=== PATIENT | female | born 1990 | race African-American/Black ===

== ENCOUNTER 2021-03-19 11:00 | Observation (INO) | payer MEDICAID ==
[~2021-03-19 11:00] MED LIST: PREN-96 PO
== END 2021-03-19 13:40 | disposition home or self-care (01) ==
LOC: LDRP 11:00
PROVIDERS: ADMIT Specialist; ATTEND Specialist
DX: O26.892 Other specified pregnancy related conditions, second trimester (principal); R10.9 Unspecified abdominal pain; Z3A.22 22 weeks gestation of pregnancy; V49.40XA Driver injured in collision with unspecified motor vehicles in traffic accident, initial encounter; Y93.89 Activity, other specified; Y92.410 Unspecified street and highway as the place of occurrence of the external cause
CPT/HCPCS: 59025; 76815; 81002; G0378

== ENCOUNTER 2023-04-09 10:21 | Emergency (ER) | payer MEDICAID ==
[~2023-04-09] VITALS: Ht 170.2 cm; Wt 142.0 kg
[2023-04-09 11:25] VITALS: BP 117/69
[2023-04-09 11:40] LABS: Urine Bacteria NONE SEEN /hpf (None Seen); Urine Blood 3+ /uL (Negative); Urine Mucus FEW (None Seen); Urine Specific Gravity 1.029 (1.001-1.035); Urine WBC 6 /hpf (0 - 5)
[2023-04-09] MEDS ORDERED: NITR-52 PO (13:30)
[2023-04-09] MEDS ORDERED: ONDA-144 PO (13:30)
== END 2023-04-09 13:47 | disposition home or self-care (01) ==
LOC: ER 10:21
DX: R51.9 Headache, unspecified (principal); N39.0 Urinary tract infection, site not specified; R11.2 Nausea with vomiting, unspecified; Z32.02 Encounter for pregnancy test, result negative
CPT/HCPCS: 81001; 81025; 87086

== ENCOUNTER 2025-02-20 15:45 | Observation (INO) | payer MEDICAID ==
[~2025-02-20 15:45] MED LIST changes: +CEPH250C PO; +NITR-52 PO; +ONDA-144 PO
--- NOTE | 2025-02-20 16:44 | DVH ---
Procedure: US BIOPHYSICAL PROFILE 02/20/2025 04:01 PM Indication: PIH Comparison: None Technique: Sonogram of gravid uterus utilizing grayscale and color techniques. FINDINGS: Single living intrauterine gestation. Presentation: Breech Placenta: Anterior, no evidence of placenta previa or abruption heart rate: 140 bpm MADHAVI: 14.2 cm, DVP: 3 cm Maternal cervix: Not visualized Biophysical Profile: breathing score: 2 movement score: 2 tone: 2 Quantitative MADHAVI score: 2 Total score: 8/8 IMPRESSION: 1. Single living as above. 2. Biophysical profile score: 8/8.
[2025-02-20 17:11] LABS: Basophils # (auto) 0 10 ^3/uL (0-0.2); Eosinophils # (auto) 0 10 ^3/uL (0-0.8); Hemoglobin 9.9 g/dL (12.2-16.2); Lymphocytes % (auto) 20.6 % (10.0-50.0); White Blood Cell 9.7 10^3/uL (4.4-10.8)
[2025-02-20 17:13] LABS: Basophils % (auto) 0.3 % (0.0-2.0); Eosinophils % (auto) 0.4 % (0.0-7.0); Mean Corpuscular Hemoglobin 22.9 pg (28.0-32.0); Mean Corpuscular Hgb Conc. 30.9 g/dL (32.0-36.0); Monocytes # (auto) 0.9 10 ^3/uL (0-1.3); Monocytes % (auto) 9.1 % (0.0-12.0); Neutrophils # (auto) 6.7 10 ^3/uL (1.6-8.6); Neutrophils % (auto) 69.6 % (37.0-80.0); Platelet Count (auto) 176 10^3/uL (140-450); Red Blood Cells 4.33 10^6/uL (4.0-5.20)
[2025-02-20 17:16] LABS: Red Cell Distribution Width 22.2 % (11.8-14.3)
[2025-02-20 17:27] LABS: Creatinine, Urine 27.09 mg/dL (30.0-125.0); Urine Protein/Creatinine Ratio 0.22
[2025-02-20 17:27] LABS: INR 0.93 (0.9-1.15); Partial Thromboplastin Time 25.6 SEC (24.5-34.5); Prothrombin Time 9.9 sec (9.3-11.8)
[2025-02-20 17:31] LABS: Alanine Aminotransferase 10 U/L (7-40); Albumin 3.8 g/dL (3.2-4.8); Alkaline Phosphatase 90 U/L (46-116); Anion Gap 7 (5-15); Bilirubin, Total 0.3 mg/dL (0.2-1.0); Calcium 8.9 mg/dL (8.7-10.4); Carbon Dioxide 22 mmol/L (20-31); Glucose 76 mg/dL (74-106); Sodium 137 mmol/L (136-145); Total Protein 6.6 g/dL (5.7-8.2)
[2025-02-20 17:32] LABS: Urine Bacteria MOD /hpf (None Seen); Urine Blood Negative /uL (Negative); Urine Clarity Turbid (Clear); Urine Color Colorless (Yellow); Urine Hyaline Cast FEW /lpf (0 - 2); Urine Protein, UAD Negative (Negative); Urine Specific Gravity 1.005 (1.001-1.035); Urine Squamous Epithelial Cell FEW /hpf (<5); Urine Urobilinogen Normal (Negative); Urine WBC 8 /HPF (0-5); Urine pH 6.5 (5.0-9.0)
[2025-02-20 17:33] LABS: Amphetamine Screen, Urine Neg (NEGATIVE); Barbiturate Scree,Urine Neg (NEGATIVE); Benzodiazephine Screen, Urine Neg (NEGATIVE); Cannabinoid Screen, Urine Neg (NEGATIVE); Cocaine Screen, Urine Neg (NEGATIVE); Opiate Scree,Urine Neg (NEGATIVE); Phencyclidine Screen, Urine Neg (NEGATIVE); Protein, Urine < 6.0 mg/dL (1-14)
[2025-02-20 17:35] LABS: Aspartate Aminotransferase 13 U/L (13-40); Blood Urea Nitrogen 5 mg/dL (9-23); Chloride 108 mmol/L (98-107); Potassium 3.3 mmol/L (3.5-5.1); Uric Acid 2.5 mg/dL (3.1-7.8)
--- NOTE | 2025-02-21 14:38 | DVHDS2 ---
Physician Discharge Progress N Final Diagnosis: pih check 34 wks Operations or Procedures: Operations or Procedures nst,sono Condition on Discharge: Good Disposition: Home Discharge Instructions: Diet: Regular Activity: No Restrictions, As Tolerated Medications: na Follow Up Care: Specialist: 3d Discharge Statement: "Patient was advised to return to the ER or call 911 if any headaches, dizziness, shortness of breath, chest pain, abdominal pain, bleeding, fevers, or worsening of medical condition. Patient was counseled about treatment plan, medications, possible side effects, patientverbalized understanding. All questions were answered to the best of my ability. This discharge took greater then 30 minutes in planning, reviewing documentation, counseling the patient, and discussing with other team members." Visit Coding OBGYN Date of Service: Feb 20, 2025 Billing Provider: NERI BOB DO IMAGER Common Visit Codes: 56464-[id number] INP/OBS CARE (HIGH) IMAGER Procedure Codes: 17561-13- NON-STRESS TEST NERI BOB DO Feb 21, 2025 14:38
== END 2025-02-20 17:55 | disposition home or self-care (01) ==
LOC: LDRP 15:45
PROVIDERS: ADMIT Obstetrics & Gynecology; ATTEND Obstetrics & Gynecology
DX: O13.3 Gestational [pregnancy-induced] hypertension without significant proteinuria, third trimester (principal); Z98.890 Other specified postprocedural states; Z79.899 Other long term (current) drug therapy; Z3A.34 34 weeks gestation of pregnancy
CPT/HCPCS: 36415; 76818; 80053; 80307; 81001; 81002; 82570; 84156; 84550; 85025; 85610; 85730; 94760; G0378; 76819

== ENCOUNTER 2025-03-19 09:35 | Observation (INO) | payer MEDICAID ==
--- NOTE | 2025-03-19 12:53 | DVHDS2 ---
Physician Discharge Progress N Final Diagnosis: False labor Previous C/Section Secondary Diagnosis: Encounter for NST Condition on Discharge: Stable Disposition: Home Discharge Instructions: Diet: Regular Activity: No Restrictions, As Tolerated Activity comment: Labor precations Follow Up/Referral: as scheduled Medications: NA Follow Up Care: Discharge Statement: "Patient was advised to return to the ER or call 911 if any headaches, dizziness, shortness of breath, chest pain, abdominal pain, bleeding, fevers, or worsening of medical condition. Patient was counseled about treatment plan, medications, possible side effects, patientverbalized understanding. All questions were answered to the best of my ability. This discharge took greater then 30 minutes in planning, reviewing documentation, counseling the patient, and discussing with other team members." Visit Coding OBGYN Date of Service: Mar 19, 2025 Billing Provider: SHANNA TOMPKINS DO ASE CERTIFIED TECHNICIAN Common Visit Codes: [id number] INP/OBS CARE(MOD) SHANNA TOMPKINS DO Mar 19, 2025 12:53
== END 2025-03-19 11:03 | disposition home or self-care (01) ==
LOC: LDRP 09:35 → UNDOADMOB 10:29 → LDRP 10:29
PROVIDERS: ADMIT Obstetrics & Gynecology; ATTEND Obstetrics & Gynecology
DX: O47.9 False labor, unspecified (principal); Z98.890 Other specified postprocedural states; Z79.899 Other long term (current) drug therapy; Z3A.38 38 weeks gestation of pregnancy
CPT/HCPCS: 59025; 81002; 94760; G0378

== ENCOUNTER 2025-03-21 04:27 | Inpatient (IN) | payer MEDICAID ==
[2025-03-19 10:38] LABS: Basophils # (auto) 0 10 ^3/uL (0-0.2); Basophils % (auto) 0.4 % (0.0-2.0); Eosinophils % (auto) 0.5 % (0.0-7.0); Hemoglobin 11.5 g/dL (12.2-16.2); White Blood Cell 10.1 10^3/uL (4.4-10.8)
[2025-03-19 10:45] LABS: Eosinophils # (auto) 0 10 ^3/uL (0-0.8); Hematocrit 36.2 % (36.0-46.0); Lymphocytes # (auto) 1.9 10 ^3/uL (0.4-5.4); Lymphocytes % (auto) 18.6 % (10.0-50.0); Mean Corpuscular Hemoglobin 23.8 pg (28.0-32.0); Mean Corpuscular Hgb Conc. 31.6 g/dL (32.0-36.0); Mean Corpuscular Volume 75.2 fL (80.0-100.0); Monocytes # (auto) 0.8 10 ^3/uL (0-1.3); Monocytes % (auto) 8.2 % (0.0-12.0); Neutrophils # (auto) 7.3 10 ^3/uL (1.6-8.6); Neutrophils % (auto) 72.3 % (37.0-80.0); Platelet Count (auto) 132 10^3/uL (140-450); Red Blood Cells 4.82 10^6/uL (4.0-5.20); Red Cell Distribution Width 24.9 % (11.8-14.3)
[2025-03-19 10:47] LABS: Urine Bacteria FEW /hpf (None Seen); Urine Blood Negative /uL (Negative); Urine Clarity Clear (Clear); Urine Color Yellow (Yellow); Urine Mucus FEW (None Seen); Urine Protein, UAD TRACE (Negative); Urine Specific Gravity 1.019 (1.001-1.035); Urine Squamous Epithelial Cell FEW /hpf (<5); Urine Urobilinogen 3 mg/dL (Negative); Urine WBC 3 /HPF (0-5); Urine pH 6.5 (5.0-9.0)
[2025-03-19 10:50] LABS: INR 0.92 (0.9-1.15); Partial Thromboplastin Time 25.4 SEC (24.5-34.5); Prothrombin Time 9.8 sec (9.3-11.8)
[2025-03-19 10:58] LABS: Albumin 3.8 g/dL (3.2-4.8); Alkaline Phosphatase 104 U/L (46-116); Anion Gap 8 (5-15); Carbon Dioxide 21 mmol/L (20-31); Glucose 79 mg/dL (74-106); Sodium 138 mmol/L (136-145); Total Protein 6.6 g/dL (5.7-8.2)
[2025-03-19 10:58] LABS: Amphetamine Screen, Urine Neg (NEGATIVE); Barbiturate Scree,Urine Neg (NEGATIVE); Benzodiazephine Screen, Urine Neg (NEGATIVE); Cannabinoid Screen, Urine Neg (NEGATIVE); Cocaine Screen, Urine Neg (NEGATIVE); Opiate Scree,Urine Neg (NEGATIVE); Phencyclidine Screen, Urine Neg (NEGATIVE)
[2025-03-19 10:59] LABS: Bilirubin, Total 0.4 mg/dL (0.2-1.0)
[2025-03-19 11:02] LABS: Alanine Aminotransferase < 9 U/L (7-40); Aspartate Aminotransferase 13 U/L (13-40); Blood Urea Nitrogen 7 mg/dL (9-23); Chloride 109 mmol/L (98-107); Potassium 3.4 mmol/L (3.5-5.1)
--- NOTE | 2025-03-20 09:12 | DVHHP ---
ADMIT DATE: 03/21/2025 CHIEF COMPLAINT: Desires repeat section. HISTORY OF PRESENT ILLNESS: The patient is a 34-year-old 3, para 2 with EDC 03/30, estimated gestational age of 38 and 6/7, admitted for repeat section, presents complaining of contractions. She does not want any tubal ligation. She has been in and out of Labor and Delivery for labor. She reports having some incisional pain. PAST MEDICAL HISTORY: None. PAST SURGICAL HISTORY: . SOCIAL HISTORY: None. FAMILY HISTORY: None. PROJECT ARCHITECT HISTORY: x 2. ALLERGIES: No known drug allergies. REVIEW OF SYSTEMS: Consistent with HPI. PHYSICAL EXAMINATION: VITAL SIGNS: Stable, afebrile. HEENT: Within normal limits. CARDIOVASCULAR: Regular rate and rhythm. LUNGS: Clear to auscultation. BREASTS: Symmetrical. No masses. ABDOMEN: Gravid. Positive heart. PELVIC: 1 cm, soft, 60%. EXTREMITIES: No clubbing, cyanosis, or edema. IMPRESSION: * Intrauterine at 38 and 6/7 in early labor for repeat section. * The patient desires repeat section. * Previous section x 2. PLAN: Repeat section. Informed consent obtained. Risks and complications of surgery including infection, bleeding, hematoma formation, injury to bowel or bladder, surrounding organ, possibility of DVT, pulmonary embolism, and risks of anesthesia were discussed with the patient. Options were reviewed. All questions were answered. The patient fully understands. She wishes to proceed with planned procedure. DO THOR Ryder/TERRENCE TID: [id number] RECEIPT: [id number]
[~2025-03-21] VITALS: Ht 170.2 cm; Wt 63.5 kg
[2025-03-21] VITALS (16 sets, daily range): BP systolic 100–125; BP diastolic 54–79; PULSE 59–105; RESP 15–18; TEMP 97.3–98.5; O2SAT 96–100
[2025-03-21] MEDS: SODIUM CITR/CITRIC ACID ORAL SOLN 30 ML PO ONE (05:00)
[2025-03-21] MEDS ORDERED: MORPHINE SULF PF 5 MG/10 ML VIAL ONE (06:41)
[2025-03-21] MEDS: ceFAZolin 2 GM/D5W50ml 50 ML IV ONE (06:48)
[2025-03-21] MEDS: LACTATED RINGER'S 1,000 ML IV SCH (06:53)
[2025-03-21] MEDS ORDERED: HYDR-4072 PO (06:58)
[2025-03-21] MEDS ORDERED: DOCU-94 PO (06:58)
[2025-03-21] MEDS ORDERED: IBUP-1456 PO (06:58)
[2025-03-21] MEDS ORDERED: GUM (CHEWING) 1 GUM CHEW CHEW ONE (07:00)
[2025-03-21] MEDS ORDERED: ONDANSETRON HCL 4 MG/2 ML VIAL IV PRN ×2 (07:00→08:45)
[2025-03-21] MEDS ORDERED: ceFAZolin 1GM/50ML 50 ML IV SCH (07:00)
[2025-03-21] MEDS ORDERED: ePHEDrine SULFATE 50 MG/ML AMP ONE (07:18)
[2025-03-21] MEDS ORDERED: ONDANSETRON HCL 4 MG/2 ML VIAL ONE (07:19)
[2025-03-21] MEDS ORDERED: PHENYLEPHRINE HCL 10 MG/ML VL ONE (08:07)
[2025-03-21] MEDS ORDERED: DexAMETHasone SOD PHOS 10MG/1ML VIAL INJ IV PRN (08:45)
[2025-03-21] MEDS ORDERED: NALOXONE HCL 0.4 MG/ML VIAL IV PRN (08:45)
[2025-03-21] MEDS ORDERED: HYDROmorphone HCL 2 MG/ML VL/or syr IV PRN ×2 (08:45)
[2025-03-21] MEDS ORDERED: MEPERIDINE HCL (25 MG/ML) 1ML VIAL IV PRN (08:45)
[2025-03-21] MEDS ORDERED: ACETAMINOPHEN IV 1000 MG/100ML (10MG/ML) IV PRN (08:45)
[2025-03-21] MEDS: NALBUPHINE HCL 10 MG/1ml INJECTION SUBCUT ONE (08:45)
[2025-03-21] MEDS ORDERED: LACTATED RINGER'S 1,000 ML IV SCH (09:45)
[2025-03-21] MEDS: ACETAMINOPHEN IV 1000 MG/100ML (10MG/ML) IV PRN (10:08)
[2025-03-21] MEDS: diphenhdrAMINE HCL 50 MG/1 ML VL IV PRN ×2 (10:36→15:02)
--- NOTE | 2025-03-21 14:15 | DVHOP2 ---
Operative Report DATE OF OPERATION:03/21/25 PREOPERATIVE DIAGNOSES: [IUP AT 38+5/7 IN EARLY LABOR,[facility]] POSTOPERATIVE DIAGNOSES: [SAME] OPERATION PERFORMED: Repeat Section FINDINGS: [B] . Apgars of [8] and [8]. Weight [GOOD] crying tone. [CLEAR] amniotic fluid. Placenta and three-vessel were intact. Normal tubes, ovaries, and uterus. Moderate scar tissue. SURGEON: Jeni Avelar D.O. QUALITY ASSURANCE CALIBRATOR: motion picture camera lens technician, [KAYLEE]. ANESTHESIOLOGIST: Derik DUARTE ANESTHESIA: [Duramorph spinal, regional]. COMPLICATIONS: [NONE]. ESTIMATED BLOOD LOSS: [500] mL. BLOOD PRODUCTS USED: [NA]. PROCEDURE IN DETAIL: The patient was taken to the operating room, placed in sitting position, and spinal was placed without difficulty. She was then prepped and draped in a sterile fashion. A low Pfannenstiel incision was made scapel. At this point, it was carried down through the rectus fascia, nicked in the midline, and carried laterally. The rectus muscles were in the midline. Peritoneum was identified and entered with sharp dissection. Vesicouterine peritoneum was taken off the lower uterine segment. A lower uterine transverse incision was made with a scalpel down the chorionic membranes, ruptured with hemostat. Infant was in vertex position. One hand was placed in the lower uterine segment. Head was essentially delivered spontaneously. Nose and mouth were bulb suctioned. Shoulders and torso were delivered without difficulty. Again, pharynx, nose, and mouth were re-suctioned with vigorous crying tone. Cord was cut. The was handed off to the awaiting Respiratory. At this point, umbilical blood sample was taken. Placenta was removed. Uterus was exteriorized, cleared off all clots and debris, irrigated, and closed with a double layer of 0-Vicryl. The vesicouterine peritoneum was incorporated into this closure. We had complete hemostasis. EBL was [500] mL. The instrument, lap, and sponge count was correct x1. The uterus was placed back into the peritoneum. The peritoneal cavity was re-inspected and the lower uterine incision with good hemostasis. We closed the peritoneum with running continuous of 2-0 Vicryl. The Rectus Fascia was closed with 0-PDS, running continuous, looped-0. The skin was closed undermined, irrigated, and close with edenilson. CONDITION: The patient's and the 's condition is stable and but guarded. Visit Coding OBGYN Date of Service: Mar 21, 2025 Billing Provider: JENI AVELAR DO ARTIST AGENT Common Visit Codes: 25572-WUJ/OBS SAME DATE (HIGH) ARTIST AGENT Procedure Codes: [id number] DELIVERY ONLY JENI AVELAR DO Mar 21, 2025 14:15
--- NOTE | 2025-03-21 14:17 | POSTOP ---
Post-Operative Note Post-Operative Note Preop Diagnosis IUP AT 38 +WKS IN Labor ,desires rcs Postop Diagnosis: same Operation performed rcs Specimen baby boy,apgars 8-8 Anesthesia: Regional Anesthesiologist: nuygen Blood Loss(fluid mgmt) 500ml Surgeon Neri Avelar Senior Resident Care Director migel Implant na Complications & Mgmt none Date 03/21/25 Time 14:16 Visit Coding OBGYN Date of Service: Mar 21, 2025 Billing Provider: NERI AVELAR DO MANAGER CONTENT Common Visit Codes: 60303-CRI/OBS SAME DATE (HIGH) MANAGER CONTENT Procedure Codes: [id number] DELIVERY ONLY NERI AVELAR DO Mar 21, 2025 14:17
[2025-03-21] MEDS: POTASSIUM CHL 20 Meq TABLET PO ONE (15:02)
[2025-03-21] MEDS: ceFAZolin 1GM/50ML 50 ML IV SCH (15:02)
[2025-03-21] MEDS: NALBUPHINE HCL 10 MG/1ml INJECTION IV PRN ×2 (17:27→22:31)
[2025-03-21] MEDS: KETOROLAC TROMETH 30 MG/ML 1ML VIAL IV PRN (19:50)
[2025-03-21 20:15] LABS: Basophils # (auto) 0 10 ^3/uL (0-0.2); Eosinophils # (auto) 0 10 ^3/uL (0-0.8); Lymphocytes # (auto) 2.1 10 ^3/uL (0.4-5.4); Mean Corpuscular Hemoglobin 23.7 pg (28.0-32.0); Monocytes # (auto) 0.9 10 ^3/uL (0-1.3)
[2025-03-21 20:17] LABS: Basophils % (auto) 0.1 % (0.0-2.0); Eosinophils % (auto) 0.3 % (0.0-7.0); Hematocrit 34.9 % (36.0-46.0); Lymphocytes % (auto) 15.2 % (10.0-50.0); Mean Corpuscular Hgb Conc. 31.5 g/dL (32.0-36.0); Mean Corpuscular Volume 75.4 fL (80.0-100.0); Monocytes % (auto) 6.7 % (0.0-12.0); Neutrophils % (auto) 77.7 % (37.0-80.0); Nucleated Red Blood Cells % 0.1 %; Platelet Count (auto) 130 10^3/uL (140-450); Red Blood Cells 4.63 10^6/uL (4.0-5.20); White Blood Cell 14.1 10^3/uL (4.4-10.8)
[2025-03-21 20:19] LABS: Red Cell Distribution Width 24.6 % (11.8-14.3)
[2025-03-22] VITALS (12 sets, daily range): BP systolic 96–125; BP diastolic 57–76; PULSE 60–99; RESP 16–18; TEMP 98–98.5; O2SAT 95–99
--- NOTE | 2025-03-22 00:34 | DVHPN2 ---
Progress Note Date Seen: Mar 22, 2025 Subjective S: bleeding is less, advancing diet as tolerated, denies lightheaded/dizziness, pain controlled with IV medications, lee catheter still in place, no flatus/BM yet, ambulating well, /formula vital signs Vital Sign Date Time Temp Pulse Resp B/P (MAP) Pulse Ox O2 Delivery O2 Flow Rate FiO2 03/21/25 22:31 60 16 114/54 03/21/25 19:15 Room Air 03/21/25 19:10 97.9 100 97.9 03/21/25 08:32 0 Total Intake and Output 03/21/25 03/21/25 03/22/25 15:00 23:00 07:00 Output Total 800 ml 250 ml Balance -800 ml -250 ml medications Current Medications Medications Dose Ordered Sig/Agnes Route Start Time Stop Time Status Last Admin Dose Admin Lactated Ringer's 1,000 ml @ 125 mls/hr Q8H IV 03/21/25 05:00 03/21/25 22:58 125 MLS/HR Ondansetron HCl 4 mg Q4HP PRN IV 03/21/25 08:45 Ketorolac Tromethamine 30 mg Q6HP PRN IV 03/21/25 08:45 03/26/25 08:44 Cefazolin Sodium 50 ml @ 100 mls/hr Q8H IV 03/21/25 15:00 03/22/25 07:29 03/21/25 22:58 100 MLS/HR Acetaminophen 1,000 mg Q8HR PRN IV 03/21/25 09:45 03/22/25 09:44 03/21/25 18:53 1,000 MG Diphenhydramine HCl 50 mg Q4HP PRN IV 03/21/25 14:30 03/21/25 15:02 50 MG Nalbuphine HCl 5 mg Q6HP PRN IV 03/21/25 23:30 03/21/25 22:31 5 MG laboratory and microbiology Laboratory Tests 03/21/25 19:59 03/19/25 10:10 Test 03/19/25 10:10 Range/Units Serum Glucose 79 74-106 mg/dL Objective O: VSS Chest: heart sounds normal and lung sounds clear bilaterally Abd: soft, non-tender, fundus at U/firm/midline, active bowel sounds, no rebound or guarding Incision: dressing clean/dry/intact Ext: Non-tender, No edema, 2+ BLE DTRs Lochia: minimal See lab results Problems(with codes): (1) Precipitous drop in hematocrit (2) S/P repeat low transverse Assessment/Plan #35yo now POD#1 s/p repeat -Continue routine post-op PP care #Hypokalemia -Potassium 40 mEq PO once given -Repeat CMP in the AM Plan discussed with: Patient Visit Coding OBGYN Date of Service: Mar 22, 2025 Billing Provider: DUARTE WILLINGHAM CNM CORPORATE LAW SPECIALIST Common Visit Codes: [id number] INP/OBS CARE(HIGH) DUARTE WILLINGHAM CNM Mar 22, 2025 00:34
[2025-03-22] MEDS: KETOROLAC TROMETH 30 MG/ML 1ML VIAL IV PRN (01:15)
[2025-03-22] MEDS: NALBUPHINE HCL 10 MG/1ml INJECTION IV PRN (02:49)
[2025-03-22 06:32] LABS: Basophils # (auto) 0 10 ^3/uL (0-0.2); Basophils % (auto) 0.3 % (0.0-2.0); Mean Corpuscular Hgb Conc. 31.8 g/dL (32.0-36.0); Monocytes # (auto) 0.9 10 ^3/uL (0-1.3)
[2025-03-22 06:36] LABS: Eosinophils # (auto) 0 10 ^3/uL (0-0.8); Eosinophils % (auto) 0.3 % (0.0-7.0); Hematocrit 32.9 % (36.0-46.0); Hemoglobin 10.5 g/dL (12.2-16.2); Lymphocytes # (auto) 2.1 10 ^3/uL (0.4-5.4); Lymphocytes % (auto) 16.7 % (10.0-50.0); Mean Corpuscular Hemoglobin 24.2 pg (28.0-32.0); Mean Corpuscular Volume 76.1 fL (80.0-100.0); Neutrophils # (auto) 9.5 10 ^3/uL (1.6-8.6); Neutrophils % (auto) 75.7 % (37.0-80.0); Platelet Count (auto) 126 10^3/uL (140-450); Red Blood Cells 4.33 10^6/uL (4.0-5.20); White Blood Cell 12.5 10^3/uL (4.4-10.8)
[2025-03-22 06:59] LABS: Red Cell Distribution Width 24.6 % (11.8-14.3)
[2025-03-22 07:41] LABS: Alanine Aminotransferase 12 U/L (7-40); Alkaline Phosphatase 89 U/L (46-116); Anion Gap 7 (5-15); Calcium 9.1 mg/dL (8.7-10.4); Carbon Dioxide 25 mmol/L (20-31); Chloride 106 mmol/L (98-107); Sodium 138 mmol/L (136-145)
[2025-03-22 07:43] LABS: Albumin 3.5 g/dL (3.2-4.8); Aspartate Aminotransferase 18 U/L (13-40); Bilirubin, Total 0.4 mg/dL (0.2-1.0)
[2025-03-22 07:48] LABS: BUN/Creatinine Ratio 8.9 (10.0-20.0); Blood Urea Nitrogen < 5 mg/dL (9-23); Glucose 63 mg/dL (74-106)
[2025-03-22] MEDS: HYDROcodone-ACET 5/325MG TAB PO PRN ×2 (14:22→14:30)
[2025-03-22] MEDS: IBUPROFEN 800 MG TAB PO PRN (18:53)
[2025-03-22] MEDS: LACTATED RINGER'S 1,000 ML IV ONE (19:21)
[2025-03-22] MEDS: LACT. RINGERS/OXYTOCIN 20UNITS 1,000 ML IV ONE (19:21)
[2025-03-22] MEDS: METOCLOPRAMIDE HCL 5MG/ml INJ 2ml VIAL IV ONE (19:21)
[2025-03-22] MEDS: DOCUSATE SOD 100 MG CAP PO SCH (22:20)
[2025-03-22] MEDS: SIMETHICONE 80 MG CHEWABLE TABLET PO SCH (22:21)
[2025-03-22] MEDS: ONDANSETRON HCL 4 MG/2 ML VIAL IV ONE (22:23)
[2025-03-22] MEDS ORDERED: PREN-96 PO (23:57)
[2025-03-22] MEDS ORDERED: IBUP-1456 PO (23:57)
--- NOTE | 2025-03-23 00:51 | DVHDS2 ---
Obstetrics Discharge Summary Obstetrics Discharge Summary Date of Admission: Mar 21, 2025 Date of Discharge: March 23, 2025 Reason For Admission: Section (Repeat) Procedures: NST Intrapartum Procedures: (LOW TRANSVERSE) Procedures: Hct/date: (03/22/2025), Hgb/date: (03/22/2025) Operative Complicat: None Discharge Diagnosis: Term -Delivered Discharge Information: Activity (as tolerated, no heavy lifting and nothing in the vagina for 6 weeks), Diet (Routine), Medications (RX sent), Instructions (Routine), Discharge to (Home), Accompanied by (self), Discarge date (03/23/2025) Visit Coding OBGYN Date of Service: March 23, 2025 Billing Provider: DUARTE WILLINGHAM CNM OVERLOCK ELASTIC ATTACHER Common Visit Codes: 12787-LGA/OBS DISCH DAY <30MIN CHRIS HITCHCOCK MDWF March 23, 2025 00:51
--- NOTE | 2025-03-23 00:56 | DVHPN2 ---
Progress Note Date Seen: March 23, 2025 Subjective S: bleeding is less, eating food without issues, denies lightheaded/dizziness, pain well controlled with oral medications, no concerns with urinating, passing flatus, no BM yet, ambulating well, and supplementing with formula feeding vital signs Vital Sign Date Time Temp Pulse Resp B/P (MAP) Pulse Ox O2 Delivery O2 Flow Rate FiO2 03/22/25 23:00 98.3 95 17 96/57 (70) 98 98.3 03/22/25 19:15 Room Air 03/21/25 08:32 0 Total Intake and Output 03/22/25 03/22/25 03/23/25 15:00 23:00 07:00 Output Total 900 ml 700 ml Balance -900 ml -700 ml medications Current Medications Medications Dose Ordered Sig/Agnes Route Start Time Stop Time Status Last Admin Dose Admin Ondansetron HCl 4 mg Q4HP PRN IV 03/21/25 08:45 Nalbuphine HCl 5 mg Q6HP PRN IV 03/22/25 02:15 03/22/25 17:24 5 MG Docusate Sodium 100 mg Q12HR PO 03/22/25 10:00 03/22/25 22:20 100 MG Dimethicone 80 mg QID PO 03/22/25 12:00 03/22/25 22:21 80 MG Ibuprofen 800 mg Q8HP PRN PO 03/22/25 06:30 03/22/25 18:53 800 MG Acetaminophen/ Hydrocodone Bitart 1 tab Q4HPRN PRN PO 03/22/25 06:30 03/22/25 22:23 1 TAB Acetaminophen/ Hydrocodone Bitart 2 tab Q4HPRN PRN PO 03/22/25 06:30 laboratory and microbiology Laboratory Tests 03/22/25 06:08 Test 03/22/25 06:08 Range/Units Serum Glucose 63 L 74-106 mg/dL Objective O: VSS Chest: heart sounds normal and lung sounds clear bilaterally Abd: soft, non-tender, fundus at U/firm/midline, active bowel sounds, no rebound or guarding Incision: dressing removed; no s/sx of infection. steri-strips open to air, clean/dry/intact, edges well approximated Ext: Non-tender, No edema, 2+ BLE DTRs Lochia: minimal See lab results Problems(with codes): (1) S/P repeat low transverse (2) Precipitous drop in hematocrit Assessment/Plan A: 34yo now POD #2 s/p repeat Acute blood loss anemia Rh+ Rubella Immune and formula bottlefeeding Pain control with PO medications Bowel regimen P: D/C home today Rx sent to pharmacy precautions and preeclampsia warning signs reviewed F/U with [facility] office in 1 week Plan discussed with: Patient Visit Coding OBGYN Date of Service: March 23, 2025 Billing Provider: DUARTE WILLINGHAM CNM MEDICAL OPERATIONS SUPERVISOR Common Visit Codes: [id number] INP/OBS CARE(HIGH) CHRIS HITCHCOCK MDWF March 23, 2025 00:56
[2025-03-23 03:00] VITALS: BP 118/76; PULSE 86; RESP 18; TEMP 98; O2SAT 96
[2025-03-23 07:00] VITALS: BP 108/64; PULSE 70; RESP 18; TEMP 97.7; O2SAT 98
[2025-03-23 11:00] VITALS: BP 109/68; PULSE 99; RESP 20; TEMP 97.9; O2SAT 97
== END 2025-03-23 16:37 | disposition home or self-care (01) | DRG 540 ==
LOC: LDRP 04:27 → EDSTATUS 10:17
PROVIDERS: ADMIT Obstetrics & Gynecology; ATTEND Obstetrics & Gynecology
PROC: 10D00Z1 Extraction of Products of Conception, Low, Open Approach (ICD-10-PCS; principal; 2025-03-21 07:06)
DX: O34.211 Maternal care for low transverse scar from previous cesarean delivery (principal); D62 Acute posthemorrhagic anemia; E87.6 Hypokalemia; O99.284 Endocrine, nutritional and metabolic diseases complicating childbirth; O90.81 Anemia of the puerperium; Z37.0 Single live birth; Z3A.38 38 weeks gestation of pregnancy
CPT/HCPCS: 36415; 80053; 80307; 81001; 85025; 85610; 85730; 86780; 86803; 86850; 86900; 86901; 94760; 94762; 96360; 96361; 96365; 96366; 96374; 96375; G0378; J0131; J1885; J2405